=== PATIENT | male | born 1980 | race Caucasian/White ===

== ENCOUNTER 2021-10-06 02:11 | Emergency (ER) | payer OTHER ==
[~2021-10-06 02:11] MED LIST: CYCLOBENZAPRINE10 MG PO; IBUPROFEN800 MG PO; PERCOCET 5-3251 EACH PO
[2021-10-06 02:57] LABS: BILIRUBIN NEGATIVE (NEGATIVE); BLOOD NEGATIVE Ery/uL (NEGATIVE); CLARITY CLEAR (CLEAR); COLOR YELLOW (YELLOW); GLUCOSE (U) NORMAL (NORMAL); LEUKOCYTES 1+ Leu/uL (NEGATIVE); NITRITE NEGATIVE (NEGATIVE); PROTEIN NEGATIVE (NEGATIVE); SPECIFIC GRAVITY >=1.030 (1.001-1.030)
[2021-10-06 02:58] LABS: BASOPHIL 0.8 % (0-2); EOSINOPHIL 1.4 % (0-5); HCT 42.9 % (42.0-52.0); HGB 15.3 g/dl (13.2-18.0); LYMPHOCYTE 17.3 % (15-48); MCH 31.2 pg (25.0-31.0); MCHC 35.7 g/dL (32.0-36.0); MCV 87.4 fL (78.0-100.0); MONOCYTE 7.3 % (0-12); MPV 11.3 fL (6.0-9.5); NEUTROPHIL 73.1 % (41-80); NRBC 0; PLT 212 K/uL (150-400); RBC 4.91 M/uL (4.70-6.00); RDW 11.9 % (11.5-14.0); WBC 7.9 K/uL (4.0-10.5)
[2021-10-06 03:00] LABS: AMPHETAMINES NEGATIVE (NEGATIVE); BARBITURATES NEGATIVE (NEGATIVE); ECSTASY (MDMA) NEGATIVE (NEGATIVE); MARIJUANA (THC) NEGATIVE (NEGATIVE); METHADONE NEGATIVE (NEGATIVE); OPIATES NEGATIVE (NEGATIVE); OXYCODONE NEGATIVE (NEGATIVE)
[2021-10-06 03:15] LABS: BACTERIA 1+; URINARY WBC 20-50
[2021-10-06 03:19] LABS: ALBUMIN 3.8 g/dL (3.4-5.0); ALKALINE PHOSHATASE 61 U/L (46-116); ALT 32 U/L (16-63); AST 26 U/L (15-37); BILIRUBIN - TOTAL 0.7 mg/dL (0.2-1.0); BUN 19 mg/dL (7-18); BUN/CREAT RATIO (CALC) 16.5 RATIO; CHLORIDE 104 mmol/L (98-107); CO2 (BICARBONATE) 24 mmol/L (21-32); CREATININE 1.15 mg/dL (0.67-1.17); GLOBULIN (CALCULATION) 3.5 g/dL; GLUCOSE 115 mg/dL (74-106); POTASSIUM 3.3 mmol/L (3.5-5.1); TOTAL PROTEIN 7.3 g/dL (6.4-8.2)
[2021-10-06 03:20] LABS: ACETAMINOPHEN (TYLENOL) < 2.0 ug/mL (10.0-30.0)
[2021-10-06] MEDS ORDERED: METRONIDAZOLE500 MG PO (03:30)
[2021-10-06 03:37] LABS: INR 0.99 (0.9-1.2); PROTHROMBIN TIME 12.8 SECONDS (11.9-13.9)
[2021-10-06 03:38] LABS: PTT 28.5 SECONDS (24.9-34.6)
[2021-10-07 22:05] LABS: CHLAMYDIA TRACHOMATIS, NAA Negative (Negative); NEISSERIA GONORRHOEAE, NAA Negative (Negative)
== END 2021-10-06 16:04 ==
LOC: FER 02:11
PROVIDERS: Internal Medicine
DX: R45.851 Suicidal ideations (principal); A59.9 Trichomoniasis, unspecified; Z20.822 Contact with and (suspected) exposure to COVID-19
CPT/HCPCS: 36415; 80053; 80305; 81001; 82140; 84484; 85025; 85610; 85730; 87088; 87491; 87591; 93005; G0480; J0696; U0002